=== PATIENT | male | born 1990 | race African-American/Black ===

== ENCOUNTER 2016-10-11 13:44 | Emergency (ER) | payer SELFPAY ==
[~2016-10-11] VITALS: Ht 170.2 cm; Wt 71.0 kg
[2016-10-11] MEDS ORDERED: KETOROLAC 60MG/2ML VIAL IM ONE (14:30)
[2016-10-11 14:37] VITALS: BP 139/79
[2016-10-11] MEDS ORDERED: BACITRACIN ZINC OINT UDPKT TOP ONE (16:00)
== END 2016-10-11 19:04 | disposition home or self-care (01) ==
LOC: ER 19:03
DX: S63.612A Unspecified sprain of right middle finger, initial encounter (principal); W23.0XXA Caught, crushed, jammed, or pinched between moving objects, initial encounter; Y93.89 Activity, other specified; Y92.89 Other specified places as the place of occurrence of the external cause; R03.0 Elevated blood-pressure reading, without diagnosis of hypertension; F17.210 Nicotine dependence, cigarettes, uncomplicated; F12.90 Cannabis use, unspecified, uncomplicated
CPT/HCPCS: 29130; 73130; 96372; 99284; J1885; X7700; Z7610

== ENCOUNTER 2018-11-28 03:38 | Emergency (ER) | payer SELFPAY | END 2018-11-28 03:45 | disposition left against medical advice (07) | LOC: ER 03:38 | DX: Z53.21 Procedure and treatment not carried out due to patient leaving prior to being seen by health care provider (principal) ==

== ENCOUNTER 2023-05-30 13:33 | Emergency (ER) | payer SELFPAY ==
[~2023-05-30] VITALS: Ht 180.3 cm; Wt 86.0 kg
[2023-05-30 13:44] VITALS: BP 131/95; PULSE 65; RESP 20; TEMP 98.5; O2SAT 100
== END 2023-05-30 14:39 | disposition left against medical advice (07) ==
LOC: ER 13:33
DX: Z53.21 Procedure and treatment not carried out due to patient leaving prior to being seen by health care provider (principal)
CPT/HCPCS: 99281